=== PATIENT | female | born 1935 | race African-American/Black ===

== ENCOUNTER 2017-05-29 08:33 | Outpatient (CLI) | payer MEDICARE, MEDICAID | END 2017-05-29 08:34 | disposition home or self-care (01) | LOC: BICMAMMO 08:33 | PROVIDERS: ATTEND Emergency Medicine | DX: Z12.31 Encounter for screening mammogram for malignant neoplasm of breast (principal) | CPT/HCPCS: 77063; 77067 ==

== ENCOUNTER 2017-06-19 08:26 | Outpatient (CLI) | payer MEDICARE, MEDICAID ==
[2017-06-19] MEDS ORDERED: ISOVUE-370 76%-LOCM 1 ML ONE (14:45)
== END 2017-06-19 08:27 | disposition home or self-care (01) ==
LOC: BICCT 08:26
PROVIDERS: ATTEND Family Medicine
DX: R19.02 Left upper quadrant abdominal swelling, mass and lump (principal); N28.1 Cyst of kidney, acquired; K57.30 Diverticulosis of large intestine without perforation or abscess without bleeding
CPT/HCPCS: 74170

== ENCOUNTER 2018-05-30 08:01 | Outpatient (CLI) | payer MEDICARE, MEDICAID ==
--- NOTE | 2018-06-04 13:22 | MMO ---
Bilateral MAMMO Bilat Screen [facility]. CLINICAL HISTORY: Patient is 82 years old and is seen for screening. The patient has no family history of breast cancer. The patient has no personal history of cancer. VIEWS: The views performed were: bilateral craniocaudal with tomosynthesis; bilateral mediolateral oblique; and bilateral mediolateral oblique with tomosynthesis. FILMS COMPARED: The present examination has been compared to prior imaging studies performed at [facility] [place] on 05/11/2010, 05/18/2011, 05/16/2012, 05/17/2013, 05/20/2014, 05/26/2015, 05/27/2016 and 05/29/2017, and at [facility] [place] on 04/12/2005, 04/14/2006, 04/16/2007 and 05/07/2008. MAMMOGRAM FINDINGS: There are scattered fibroglandular densities. There are vascular calcifications seen in both breasts. There are no suspicious masses, calcifications or areas of architectural distortion. IMPRESSION: THERE IS NO MAMMOGRAPHIC EVIDENCE OF MALIGNANCY. A ROUTINE FOLLOW-UP MAMMOGRAM IN 1 YEAR IS RECOMMENDED. THE RESULTS OF THIS EXAM WERE SENT TO THE PATIENT. ACR BI-RADS Category 2 - Benign finding MAMMOGRAPHY NOTE: 1. A negative mammogram report should not delay a biopsy if a dominant of clinically suspicious mass is present. 2. Approximately 10% to 15% of breast cancers are not detected by mammography. 3. Adenosis and dense breasts may obscure an underlying neoplasm.
== END 2018-05-30 08:02 | disposition home or self-care (01) ==
LOC: BICMAMMO 08:01
PROVIDERS: ATTEND Emergency Medicine
DX: Z12.31 Encounter for screening mammogram for malignant neoplasm of breast (principal)
CPT/HCPCS: 77063; 77067

== ENCOUNTER 2018-10-19 15:42 | Outpatient (CLI) | payer MEDICARE, MEDICAID ==
--- NOTE | 2018-10-19 16:10 | ULT ---
EXAM: Bilateral lower extremity venous Doppler US HISTORY: bilateral lower extremity edema and pain FINDINGS: Grayscale, color-flow, Doppler evaluation, spectral analysis of the bilateral lower extremities venou s structures is performed with 2-D imaging. The bilateral common femoral, superficial femoral, popliteal, posterior tibial, proximal greater saphenous and profunda femoral veins are imaged. There is normal luminal compressibility, flow, and augmentation in the visualized deep venous structu res of the bilateral lower extremities. IMPRESSION: No evidence of a deep vein thrombosis in either lower extremity.
== END 2018-10-19 15:43 | disposition home or self-care (01) ==
LOC: ULT 15:42
PROVIDERS: ATTEND Emergency Medicine
DX: R22.43 Localized swelling, mass and lump, lower limb, bilateral (principal)
CPT/HCPCS: 93970

== ENCOUNTER 2019-08-07 07:41 | Outpatient (CLI) | payer MEDICARE, MEDICAID ==
--- NOTE | 2019-08-07 08:40 | MMO ---
Bilateral MAMMO Bilat Screen [facility]. CLINICAL HISTORY: Patient is 83 years old and is seen for screening. The patient has no family history of breast cancer. The patient has no personal history of cancer. VIEWS: The views performed were: bilateral craniocaudal with tomosynthesis and bilateral mediolateral oblique with tomosynthesis. FILMS COMPARED: The present examination has been compared to prior imaging studies performed at [facility] on 05/27/2016, 05/29/2017 and 05/30/2018. This study has been interpreted with the assistance of computer-aided detection. MAMMOGRAM FINDINGS: There are scattered fibroglandular densities. Benign calcifications are noted bilaterally. There are no suspicious masses, suspicious calcifications, or new areas of architectural distortion. IMPRESSION: THERE IS NO MAMMOGRAPHIC EVIDENCE OF MALIGNANCY. A ROUTINE FOLLOW-UP MAMMOGRAM IN 1 YEAR IS RECOMMENDED. THE RESULTS OF THIS EXAM WERE SENT TO THE PATIENT. ACR BI-RADS Category 2 - Benign finding MAMMOGRAPHY NOTE: 1. A negative mammogram report should not delay a biopsy if a dominant of clinically suspicious mass is present. 2. Approximately 10% to 15% of breast cancers are not detected by mammography. 3. Adenosis and dense breasts may obscure an underlying neoplasm. Reported by: JOAQUIN GONZALEZ MD Electonically Signed: [id number]
== END 2019-08-07 07:42 | disposition home or self-care (01) ==
LOC: BICMAMMO 07:41
PROVIDERS: ATTEND Emergency Medicine
DX: Z12.31 Encounter for screening mammogram for malignant neoplasm of breast (principal)
CPT/HCPCS: 77063; 77067

== ENCOUNTER 2019-08-14 21:55 | Emergency (ER) | payer MEDICARE, MEDICAID ==
--- NOTE | 2019-08-15 07:27 | RAD ---
CHEST 1 VIEW: Date: 08/14/2019 HISTORY: Fall. COMPARISON: Radiograph from 2018. FINDINGS: Heart size mildly enlarged. Right distal clavicular osteolysis. No confluent air space consolidation, pneumothorax, or effusion. No acute displaced rib fracture. IMPRESSION: No acute intrathoracic abnormality. POS: HOME
--- NOTE | 2019-08-15 07:28 | RAD ---
RIGHT KNEE 4 VIEWS: Date: 08/14/2019 COMPARISON: None. FINDINGS: No significant joint effusion. No acute displaced fracture or malalignment. Moderate to severe medial compartment degenerative change. Moderate patellofemoral and lateral compartment degenerative change s. Circumferential soft tissue swelling. IMPRESSION: No acute fracture or malalignment. POS: HOME
--- NOTE | 2019-08-15 07:29 | RAD ---
LEFT KNEE 4 VIEWS: Date: 08/14/2019 HISTORY: Fall. COMPARISON: None. FINDINGS: There is moderate to severe medial compartment joint space narrowing. Moderate patellofemoral and lat eral compartment joint space narrowing. No significant joint effusion. Circumferential soft tissue sw elling. IMPRESSION: No acute osseous abnormality. POS: HOME
--- NOTE | 2019-08-15 07:30 | CT ---
CT BRAIN WITHOUT CONTRAST: Date: 08/14/2019 HISTORY: Fall. COMPARISON: None. 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 No acute hemorrhage. No m idline shift. No mass effect. 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 Calvarium is intact. Paranasal sinuses and mastoids are relatively clear. IMPRESSION: No acute post-traumatic intracranial sequelae. POS: HOME
== END 2019-08-14 23:32 | disposition home or self-care (01) ==
LOC: ERS 21:55
DX: S80.02XA Contusion of left knee, initial encounter (principal); S80.01XA Contusion of right knee, initial encounter; S20.212A Contusion of left front wall of thorax, initial encounter; S00.03XA Contusion of scalp, initial encounter; E11.9 Type 2 diabetes mellitus without complications; I10 Essential (primary) hypertension; J45.909 Unspecified asthma, uncomplicated; Z79.84 Long term (current) use of oral hypoglycemic drugs; Z79.899 Other long term (current) drug therapy; Z79.891 Long term (current) use of opiate analgesic; W18.09XA Striking against other object with subsequent fall, initial encounter
CPT/HCPCS: 70450; 71045

== ENCOUNTER 2020-03-16 18:42 | Inpatient (IN) | payer MEDICARE, MEDICAID ==
[~2020-03-16 18:42] MED LIST: Iopamidol-370 76% 500 ML 1 ML ONE
[2020-03-16] MEDS ORDERED: Acetaminophen 500 MG TAB ONE (19:08)
[2020-03-16 19:35] LABS: #Lymphocytes 0.7 thou/uL (1.20-3.40); #Monocytes 0.4 thou/uL (0.11-0.59); #Neutrophils 4.8 thou/uL (1.40-6.50); %Basophils 0.2 % (0.0-1.0); %Eosinophils 0.1 % (0.0-10.0); %Neutrophils 80.7 % (42.0-75.0); Hemoglobin 13.5 g/dL (12.0-16.0); Mean Corpuscular HGB CONC 33.1 g/dL (32.0-36.0); Mean Corpuscular Hemoglobin 29.5 pg (27.0-31.0); Mean Corpuscular Volume 89.1 fL (78.0-98.0); Platelet Count 113 thou/uL (130-400); RBC Distribution Width 12.1 % (11.5-14.5); Red Blood Cell (RBC) Count 4.59 mill/uL (4.20-5.40)
[2020-03-16 19:39] LABS: INR-International Normal Ratio 1.1; Prothrombin Time 14.3 sec (12.0-14.7)
[2020-03-16 19:40] LABS: PTT 36.6 sec (22.9-36.1)
[2020-03-16 19:41] LABS: D-Dimer Test 1.44 *mcg/mL (0.27-0.43)
[2020-03-16 20:02] LABS: ALT (SGPT) 29 U/L (8-55); AST (SGOT) 55 U/L (5-34); Albumin 3.4 g/dL (3.4-4.8); Alkaline Phosphatase 39 U/L (40-110); Anion Gap 16 mmol/L (10-20); BUN (Urea Nitrogen) 15 mg/dL (9.8-20.1); Bilirubin, Total 0.4 mg/dL (0.2-1.2); Calc. Creatinine Clearance 0 mL/min (70-130); Calcium 7.7 mg/dL (7.8-10.44); Carbon Dioxide 21 mmol/L (23-31); Chloride 108 mmol/L (98-107); Globulin 3.3 g/dL (2.4-3.5); Glucose 182 mg/dL (83-110); Protein, Total 6.7 g/dL (6.0-8.3); Sodium 142 mmol/L (136-145)
[2020-03-16 20:04] LABS: Bacteria/HPF None Seen HPF (None Seen); Bilirubin Negative (Negative); Blood, Urine 3+ (Negative); Clarity Turbid (Clear); Glucose, Urine (Dipstick) 70 mg/dL (Negative); Ketone, Urine Trace mg/dL (Negative); Leukocyte Negative Leu/uL (Negative); Nitrite Negative (Negative); Protein, Urine (Dipstick) 200 mg/dL (Neg-Trace); RBC/HPF 0-3 HPF (0-3); Specific Gravity, Urine 1.026 (1.002-1.036); Urobilinogen Normal mg/dL (Less than 2)
[2020-03-16 20:16] LABS: CKMB 3.2 ng/mL (0-6.6)
--- NOTE | 2020-03-16 20:42 | PDOC.FPRHP ---
- History of Present Illness Chief Complaint: fever History of Present Illness: Patient is 84 yo F who was dx with Covid on 03/12. She has had fever today and increased SOB. She also complains of chest pain. She is a somewhat poor historian. Also has been feeling weak. ED Course: In ED, patient had sepsis workup in setting of known Covid positive. CTA neg for PE, reactive lymphadenopathy, and groundglass opacities. Received potassium, 1mg/kg lovenox, aspirin, 1L NS, and tylenol 1g. - Allergies/Adverse Reactions Allergies Allergy/AdvReac Type Severity Reaction Status Date / Time No Known Allergies Allergy Verified 06/02/19 06:40 - Home Medications Medication Instructions Recorded Confirmed Type Valsartan/Hydrochlorothiazide 09/11/12 09/11/12 History [Valsartan-Hctz 320-12.5 mg Tab] metFORMIN HCl [metFORMIN HCl ER] 500 mg PO QPM-WM 09/11/12 09/11/12 History Amoxicillin [Amoxil] 500 mg PO Q8HR #30 cap 10/04/12 Rx - History PMHx: Type 2 DM, HTN, asthma, HLD PSHx: bilateral rotator cuff surgeries, left wrist surgery, hysterectomy FHx: denies Social: - Lives at home with family - denies alcohol, smoking, drugs - Review of Systems General: reports: fever/chills. denies: weight/appetite/sleep changes Eyes: denies: vision changes ENT: denies: nasal congestion, rhinorrhea Respiratory: reports: cough, shortness of breath Cardiovascular: reports: chest pain. denies: palpitation Gastrointestinal: denies: nausea, vomiting, diarrhea Genitourinary: denies: dysuria Skin: denies: rashes Musculoskeletal: denies: pain, tenderness Neurological: reports: weakness. denies: syncope Psychological: denies: anxiety, depression - Vital signs BP: 203/74, MAP: 117, Pulse: 95, Resp: 32, Temp: 102.6 (Oral), Pain: 0, O2 sat: 98 on (Room Air), Wt: 132 kg Time: 03/16/2020 18:50. - Physical Exam Constitutional: NAD, awake, alert and oriented, well developed HEENT: normocephalic and atraumatic, PERRLA, EOMI, conjunctiva clear, no scleral icterus, grossly normal vision, grossly normal hearing Neck: trachea midline Chest: no-tender to palpation Heart: RRR, normal S1/S2, no murmurs/rubs/gallops Lungs: CTAB, no respiratory distress, good air movement Abdomen: soft, non-tender, bowel sounds present Musculoskeletal: normal structure, normal tone Neurological: no focal deficit Skin: no rash/lesions, good turgor Heme/Lymphatic: no unusual bruising or bleeding Psychiatric: normal mood and affect, intact recent and remote memory FMR H&P: Results - Labs Result Diagrams: 03/17/20 04:43 03/17/20 04:43 Lab results: WBC 6.0 thou/uL (4.8-10.8) 03/16/20 19:18 Hgb 13.5 g/dL (12.0-16.0) 03/16/20 19:18 Hct 40.9 % (36.0-47.0) 03/16/20 19:18 MCV 89.1 fL (78.0-98.0) 03/16/20 19:18 Plt Count 113 thou/uL (130-400) L 03/16/20 19:18 Neutrophils % 80.7 % (42.0-75.0) H 03/16/20 19:18 ESR Westergren 47 mm/hr (Less than 30) H 03/16/20 19:18 Sodium 142 mmol/L (136-145) 03/16/20 19:18 Potassium 3.0 mmol/L (3.5-5.1) L 03/16/20 19:18 Chloride 108 mmol/L (98-107) H 03/16/20 19:18 Carbon Dioxide 21 mmol/L (23-31) L 03/16/20 19:18 BUN 15 mg/dL (9.8-20.1) 03/16/20 19:18 Creatinine 0.83 mg/dL (0.6-1.1) 03/16/20 19:18 Glucose 182 mg/dL (83-110) H 03/16/20 19:18 Lactic Acid 1.3 mmol/L (0.5-2.2) 03/16/20 19:18 Calcium 7.7 mg/dL (7.8-10.44) L 03/16/20 19:18 Total Bilirubin 0.4 mg/dL (0.2-1.2) 03/16/20 19:18 AST 55 U/L (5-34) H 03/16/20 19:18 ALT 29 U/L (8-55) 03/16/20 19:18 Alkaline Phosphatase 39 U/L (40-110) L 03/16/20 19:18 CK-MB (CK-2) 3.2 ng/mL (0-6.6) 03/16/20 19:18 C-Reactive Protein 7.44 mg/dL (= or < 0.5) H 03/16/20 19:18 B-Natriuretic Peptide 93.1 pg/mL (0-100) 03/16/20 19:18 Serum Total Protein 6.7 g/dL (6.0-8.3) 03/16/20 19:18 Albumin 3.4 g/dL (3.4-4.8) 03/16/20 19:18 Urine Ketones Trace mg/dL (Negative) A 03/16/20 19:28 Urine Blood 3+ (Negative) A 03/16/20 19:28 Urine Nitrite Negative (Negative) 03/16/20 19:28 Ur Leukocyte Esterase Negative Reji/uL (Negative) 03/16/20 19:28 Urine RBC 0-3 HPF (0-3) 03/16/20 19:28 Urine WBC 4-6 HPF (0-3) A 03/16/20 19:28 Ur Squamous Epith Cells 4-6 HPF (0-3) A 03/16/20 19:28 Urine Bacteria None Seen HPF (None Seen) 03/16/20 19:28 - EKG Interpretation EKG: NSR, nonspecific T wave flattening - Radiology Interpretation Chest x-ray Status: image reviewed by me, report reviewed by me CT scan - chest Status: image reviewed by me, report reviewed by me Additional comment: neg for PE FMR H&P: A/P - Plan 84 yo female admitted for: NSTEMI - elevated troponin, nonspecific EKG changes - anticoagulated with therapeutic lovenox based on ideal body weight. - platelets at 113, monitor closely - trend troponins Covid PNA - inflammatory markers elevated consistent with Covid PNA - on room air and saturating well - due to being on room air, hold steroids and do not trend inflammatory markers - covid precautions Possible UTI - asymptomatic - culture pending Hypokalemia Hypophosphatemia - replaced, monitor - magnesium normal - replace phosphate in AM depending on potassium in AM (potassium phosphate vs sodium phosphate) T2DM HTN Asthma HLD - continue home meds Code: FULL Diet: diabetic diet IVF: SL VTE: th LVX GI ppx: none Discussed plan with Dr. Resendez. Disposition/LOS: admit to inpatient, telemetry. ELOS > 48H. Addendum - Attending - Attending Attestation Date/Time: 03/17/20 8720 I personally evaluated the patient and discussed the management with Dr. Jain on 03/16/2020 I agree with the History, Examination, Assessment and Plan documented above with any addition or exceptions noted below - 84 yo F with h/o DM, HTN, HLD and asthma who was dx with Covid on 03/12. She has had fever today and increased SOB. She also complains of chest pain. She is a somewhat poor historian. Also has been feeling weak. PMH/PSH/Meds/SH reviewed and agree with resident's documentation. VSS Exam repeated by me and agree with resident's findings. Labs: WBC=6.0, H/H=13.5/40.9, Nln=643, Gv=753, K=3.0, Vp=591, CO2=21, BUN/Cr=15/0.83, Ruqp=718, AST/ALT=55/29, BNP=93.1, CRP=7.44, D-dimer=1.44, tro I=0.173, CTA- no PE; multilobar ground glass opacities s/w COVID pneumonia. A/P: 1) NSTEMI - continue lovenox, ASA, statin, beta-apoorva. 2) COVID pneumonia- no O2 requirement; continue to monitor. 3) DM- continue home meds; monitor accuchecks.
--- NOTE | 2020-03-16 21:17 | CT ---
Exam: CT angiogram of the chest HISTORY: Dyspnea. Elevated d-dimer. COVID positive patient. Generalized weakness. COMPARISON: None TECHNIQUE: CT angiogram of the chest is performed in the axial plane. Three-dimensional reformatted i mages are submitted for interpretation FINDINGS: Mediastinum: No mediastinal mass, lymphadenopathy or hematoma. Enlarged right hilar lymph node measur es 1.8 and 1.3 cm. HEART: Normal size. No significant pericardial fluid. Aorta: No aneurysm or dissection Upper solid abdominal viscera: No abnormality enhancement. Trachea and central bronchi: Patent Pleural spaces: No effusion Lung parenchyma: Peripheral groundglass opacities, in keeping with the patient's positive COVID statu s post. Pneumothorax: None Osseous structures: No lytic or blastic lesions Pulmonary arteries: Adequate contrast opacification pulmonary arterial system to the level of segment al arteries. No filling defect to suggest pulmonary embolism IMPRESSION: 1. No evidence of pulmonary arterial embolism to the level of the segmental arteries 2. Multi lobar groundglass opacities, due to multi lobar COVID pneumonia. 3. Lymphadenopathy, presumed be reactive.
[2020-03-16] MEDS ORDERED: Aspirin 325 MG TAB ONE (21:51)
[2020-03-16] MEDS ORDERED: Potassium Chloride 20 MEQ TAB ONE (21:51)
[2020-03-16] MEDS ORDERED: Enoxaparin Sodium 30 MG/0.3 ML SYRINGE ONE (21:51)
[2020-03-16] MEDS ORDERED: Enoxaparin Sodium 100 MG/ML SYRINGE ONE (21:51)
[2020-03-16 22:00] LABS: Troponin I 0.215 ng/mL (< 0.028)
[2020-03-16] MEDS ORDERED: Nitroglycerin 0.4 MG TAB (25 Tab Bottle) SL PRN (22:18)
[2020-03-16] MEDS ORDERED: Ondansetron ODT 4 MG TAB PO PRN (22:29)
[2020-03-16] MEDS ORDERED: Calcium Carbonate 500 MG ChewTAB PO PRN (22:29)
[2020-03-16] MEDS ORDERED: Acetaminophen 650 MG Suppository PR PRN (22:29)
[2020-03-16] MEDS ORDERED: Acetaminophen 325 MG TAB PO PRN (22:29)
[2020-03-16 22:43] LABS: Hemoglobin A1c 6.1 % (4.0-6.0)
[2020-03-16] MEDS ORDERED: Albuterol Sulfate 2.5 mg/3 ml Neb NEB PRN (23:41)
[2020-03-16] MEDS ORDERED: Loratadine 10 MG TAB PO PRN (23:41)
[2020-03-17 01:23] LABS: Troponin I 0.219 ng/mL (< 0.028)
[2020-03-17] MEDS ORDERED: Carvedilol 25 MG TAB PO SCH ×2 (01:45→08:00)
[2020-03-17 02:21] VITALS: BMI 46.0
[2020-03-17] MEDS ORDERED: Sodium Phosphate 15 MMOL in Sodium Chloride 0.9% 250 ML 250 ML IVPB SCH (02:45)
[2020-03-17 05:05] LABS: #Lymphocytes 1.6 thou/uL (1.20-3.40); #Monocytes 0.5 thou/uL (0.11-0.59); #Neutrophils 3.9 thou/uL (1.40-6.50); %Basophils 0.2 % (0.0-1.0); %Lymphocytes 26.3 % (21.0-51.0); %Monocytes 8.5 % (0.0-10.0); %Neutrophils 64.9 % (42.0-75.0); Hemoglobin 12.2 g/dL (12.0-16.0); Mean Corpuscular HGB CONC 32.3 g/dL (32.0-36.0); Mean Corpuscular Hemoglobin 28.8 pg (27.0-31.0); Mean Corpuscular Volume 89.2 fL (78.0-98.0); Mean Platelet Volume 7.9 fL (7.4-10.4); Platelet Count 116 thou/uL (130-400); RBC Distribution Width 12.1 % (11.5-14.5); Red Blood Cell (RBC) Count 4.24 mill/uL (4.20-5.40)
[2020-03-17 05:22] LABS: ALT (SGPT) 33 U/L (8-55); AST (SGOT) 61 U/L (5-34); Alkaline Phosphatase 34 U/L (40-110); Anion Gap 13 mmol/L (10-20); BUN (Urea Nitrogen) 13 mg/dL (9.8-20.1); Bilirubin, Total 0.4 mg/dL (0.2-1.2); Calc. Creatinine Clearance 121 mL/min (70-130); Calcium 7.5 mg/dL (7.8-10.44); Carbon Dioxide 24 mmol/L (23-31); Cardiac Risk 3.1 (Less than 4.5); Chloride 109 mmol/L (98-107); Cholesterol 94 mg/dl (< 200 Desired); Globulin 3.2 g/dL (2.4-3.5); Glucose 114 mg/dL (83-110); HDL Cholesterol 30 mg/dL (>60 Neg Risk); LDL Cholesterol, Calculated 49 mg/dL; Magnesium 1.8 mg/dL (1.6-2.6); Protein, Total 6.2 g/dL (6.0-8.3); Sodium 143 mmol/L (136-145); Triglycerides 75 mg/dL (Less than 150)
[2020-03-17 05:23] LABS: Troponin I 0.221 ng/mL (< 0.028)
[2020-03-17] MEDS ORDERED: Potassium Chloride 20 MEQ TAB PO SCH (06:00)
--- NOTE | 2020-03-17 06:01 | PDOC.FM ---
- Subjective Subjective: Patient reports that she is doing well overall. She denies chest pain. She endorses back pain relieved by rolling onto side. Denies SOB. - Objective MAR Reviewed: Yes Vital Signs & Weight: Weight Weight 133.3 kg Result Diagrams: 03/17/20 04:43 03/17/20 04:43 Phys Exam - Physical Examination Constitutional: NAD Respiratory: no wheezing, no rales, no rhonchi Cardiovascular: RRR, no significant murmur, no rub Gastrointestinal: soft, non-tender, no distention, positive bowel sounds Dx/Plan - Plan Plan: 84 yo female admitted for: Indeterminate trops - elevated troponin, nonspecific EKG changes - DO NOT believe patient meets criteria for NSTEMI. Troponins remained indeterminate and patient is asymptomatic and never had chest pain. - Change lovenox to DVT ppx - platelets at 113, monitor closely - trend troponins- stable near 0.22 - check troponin today @ 1500 Covid PNA - inflammatory markers elevated consistent with Covid PNA - on NC, continue to monitor O2 requirements - If O2 is needed, may trend markers/consider starting steroids/COVID tx - covid precautions Possible UTI - asymptomatic - culture pending - Will not treat asx bacteriuria Hypokalemia Hypophosphatemia - replaced, monitor - magnesium normal - replace phosphate in AM depending on potassium in AM (potassium phosphate vs sodium phosphate) T2DM HTN Asthma HLD - continue home meds Code: FULL Diet: diabetic diet IVF: SL VTE: LVX GI ppx: none Disposition/LOS: Inpatient tele Addendum - Attending - Attending Attestation Date/Time: 03/17/20 1307 I personally evaluated the patient and discussed the management with Dr. Oquendo I agree with the History, Examination, Assessment and Plan documented above with any addition or exceptions noted below. 84 yo female placed in obs for cardiac evaluation. Patient noted to have indeterminate trops but was treated as NSTEMI. However, per patient report asymptomatic other than dyspnea from COVID. Nonspecific EKG changes. Trop is up trending but remains below threshold. Will repeat at 1500. If negative will d/c to home with precautions and outpatient cards follow up. Noted to have COVID PNA. Not requiring O2. Does have underlying asthma. Will add steroids and continue home breathing treatments as needed. Set up for outpatient monoclonal antibody treatment. Continue to monitor throughout the day. Dispo pending cardiac results. ABrayMD
[2020-03-17] MEDS ORDERED: metFORMIN 500 MG TAB PO SCH (08:00)
[2020-03-17] MEDS ORDERED: Oxybutynin 5 MG TAB PO SCH (09:00)
[2020-03-17] MEDS ORDERED: Enoxaparin Sodium 30 MG/0.3 ML SYRINGE SC SCH (09:00)
[2020-03-17] MEDS ORDERED: Cyanocobalamin (Vitamin B-12) 1,000 MCG TAB PO SCH (09:00)
[2020-03-17] MEDS ORDERED: Enoxaparin Sodium 40 MG/0.4 ML SYRINGE SC SCH ×2 (09:00)
[2020-03-17] MEDS ORDERED: Hydrochlorothiazide 25 MG TAB PO SCH (09:00)
[2020-03-17] MEDS ORDERED: Lisinopril 20 MG TAB PO SCH (09:00)
[2020-03-17] MEDS ORDERED: Amlodipine 10 MG TAB PO SCH (09:00)
[2020-03-17] MEDS ORDERED: Gabapentin 100 MG CAP PO SCH (09:00)
[2020-03-17] MEDS ORDERED: Fluticasone Propionate Nasal Spray 16 gm Bottle NASAL SCH (09:00)
[2020-03-17] MEDS ORDERED: Aspirin 81 mg Enteric Coated Tablet PO SCH (09:00)
[2020-03-17] MEDS ORDERED: Enoxaparin Sodium 100 MG/ML SYRINGE SC SCH (09:00)
[2020-03-17] MEDS ORDERED: Potassium Chloride 20 MEQ TAB ONE (09:19)
[2020-03-17] MEDS ORDERED: PHOS-NAK 1 PKT PACK PO SCH (09:30)
[2020-03-17] MEDS ORDERED: Aspirin Chewable 81 MG TAB ONE (09:41)
[2020-03-17] MEDS ORDERED: Enoxaparin Sodium 30 MG/0.3 ML SYRINGE ONE (09:42)
[2020-03-17] MEDS ORDERED: Enoxaparin Sodium 100 MG/ML SYRINGE ONE (09:42)
[2020-03-17] MEDS ORDERED: Enoxaparin Sodium 40 MG/0.4 ML SYRINGE ONE (09:43)
[2020-03-17 09:45] LABS: Phosphorus 2.5 mg/dL (2.3-4.7)
[2020-03-17] MEDS ORDERED: Acetaminophen 500 MG TAB ONE (12:55)
[2020-03-17] MEDS ORDERED: Acetaminophen 500 MG TAB PO SCH (15:45)
[2020-03-17 16:00] LABS: Troponin I 0.218 ng/mL (< 0.028)
--- NOTE | 2020-03-17 20:52 | DIS ---
DATE OF ADMISSION: 03/16/2020 DATE OF DISCHARGE: 03/17/2020 ADMITTING ATTENDING: Dr. Resendez. DISCHARGE ATTENDING: Dr. Sebastian. PROCEDURES: Chest CT angiogram showing no evidence of pulmonary embolism. PRIMARY DIAGNOSIS: Coronavirus pneumonia. SECONDARY DIAGNOSIS: Indeterminate troponin, hypokalemia, hypophosphatemia, type 2 diabetes, hypertension, asthma, hyperlipidemia. DISCHARGE MEDICATIONS: 1. Carvedilol 25 mg p.o. b.i.d. 2. Lisinopril 40 mg p.o. daily. 3. Albuterol 2 puffs q.6 hours p.r.n. 4. 1000 mcg of B12 p.o. daily. 5. Flonase 2 squirts each nostril daily. 6. Albuterol nebulizer q.4 hours p.r.n. 7. Kaleigh 60 mg p.o. daily. 8. Metformin 500 mg p.o. b.i.d. 9. Hydrochlorothiazide 50 mg p.o. daily. 10. Nasacort 1 spray daily each nostril. 11. Simvastatin 40 mg p.o. daily. 12. Oxybutynin 5 mg p.o. daily. 13. Amlodipine 10 mg p.o. daily. 14. Gabapentin 100 mg p.o. daily. 15. Nystatin powder apply topically b.i.d. 16. Discontinued medications: None. HISTORY OF PRESENT ILLNESS/HOSPITAL COURSE: The patient is an 84-year-old female with past medical history of diabetes and hypertension, who presented to the ED due to general malaise and fevers. On admission, the patient had temperature of 102.6. The patient tested positive on 03/12 for COVID. During her evaluation, labs were found to show troponin significant at 0.173, which trended up to 0.221. The patient was admitted due to this indeterminate troponin. The patient was admitted initially admitted under diagnosis of NSTEMI, however, troponin never increased out of indeterminate range. The patient denied chest pain during the hospital stay. While in the hospital the patient reported skin breakdown under one of the folds on her pannus. Nystatin powder was ordered. Given stable indeterminate tropes with no active chest pain and no other evidence on electrocardiogram, the patient was discharged in stable condition. The patient required 2 L of nasal cannula oxygen for a minimal amount of time but was otherwise stable on room air and O2 saturations were near 100%. DISPOSITION: Stable. DISCHARGE INSTRUCTIONS: 1. Location: Home. 2. Diet: Consistent carb, heart healthy. 3. Activity: As tolerated, discussed self quarantine of 10 days from start of sx. 4. Followup: Please follow up with your primary care physician within 2 weeks for followup of symptoms as well as the skin rash. Clinic will call the patient to try to set up monoclonal antibody infusions on day after discharge. Job ID: [id number] [facility]
[2020-03-17] MEDS ORDERED: Atorvastatin Calcium 40 MG TAB PO SCH (21:00)
[2020-03-17] MEDS ORDERED: Simvastatin 40 MG TAB PO SCH (21:00)
[2020-03-18] MEDS ORDERED: Enoxaparin Sodium 40 MG/0.4 ML SYRINGE SC SCH (09:00)
== END 2020-03-17 18:18 | disposition home or self-care (01) | DRG 177 ==
LOC: ERS 18:42 → OBSVTOIN 21:10 → ERHOLD 21:10
PROVIDERS: ADMIT Family Medicine; ATTEND Family Medicine
PROC: 8E0ZXY6 Isolation (ICD-10-PCS; principal; 2020-03-16)
DX: U07.1 COVID-19 (principal); J12.82 Pneumonia due to coronavirus disease 2019; E87.6 Hypokalemia; E83.39 Other disorders of phosphorus metabolism; E11.9 Type 2 diabetes mellitus without complications; I10 Essential (primary) hypertension; J45.909 Unspecified asthma, uncomplicated; R79.89 Other specified abnormal findings of blood chemistry; E78.5 Hyperlipidemia, unspecified; Z79.899 Other long term (current) drug therapy; Z90.710 Acquired absence of both cervix and uterus; R77.8 Other specified abnormalities of plasma proteins; Z79.84 Long term (current) use of oral hypoglycemic drugs
CPT/HCPCS: 36415; 71045; 71275; 80053; 80061; 81003; 81015; 82553; 83036; 83605; 83735; 83880; 84100; 84145; 84443; 84484; 85025; 85379; 85610; 85652; 85730; 86140; 87040; 87086; 93005; 94760; 96372; J1650; Q9967

== ENCOUNTER 2020-03-18 01:32 | Inpatient (IN) | payer MEDICARE, MEDICAID ==
[2020-03-18] MEDS ORDERED: Dexamethasone 10 MG/ML VIAL ONE (02:17)
[2020-03-18 02:30] LABS: #Lymphocytes 0.6 thou/uL (1.20-3.40); #Monocytes 0.4 thou/uL (0.11-0.59); #Neutrophils 7.6 thou/uL (1.40-6.50); %Basophils 0.1 % (0.0-1.0); %Eosinophils 0.1 % (0.0-10.0); %Lymphocytes 7.4 % (21.0-51.0); %Monocytes 4.5 % (0.0-10.0); %Neutrophils 87.9 % (42.0-75.0); Hemoglobin 13.1 g/dL (12.0-16.0); Mean Corpuscular HGB CONC 34.6 g/dL (32.0-36.0); Mean Corpuscular Hemoglobin 30.7 pg (27.0-31.0); Mean Corpuscular Volume 88.9 fL (78.0-98.0); Platelet Count 129 thou/uL (130-400); RBC Distribution Width 12.1 % (11.5-14.5); Red Blood Cell (RBC) Count 4.27 mill/uL (4.20-5.40); White Blood Cell (WBC) Count 8.7 thou/uL (4.8-10.8)
[2020-03-18] MEDS ORDERED: Cefepime 2 GM VIAL ONE (02:36)
[2020-03-18 02:45] LABS: INR-International Normal Ratio 1.1; Prothrombin Time 13.9 sec (12.0-14.7)
[2020-03-18 02:46] LABS: PTT 41.4 sec (22.9-36.1)
[2020-03-18 03:12] LABS: ALT (SGPT) 52 U/L (8-55); AST (SGOT) 108 U/L (5-34); Alkaline Phosphatase 35 U/L (40-110); Anion Gap 19 mmol/L (10-20); BUN (Urea Nitrogen) 13 mg/dL (9.8-20.1); Bilirubin, Total 0.6 mg/dL (0.2-1.2); Calc. Creatinine Clearance 0 mL/min (70-130); Calcium 7.3 mg/dL (7.8-10.44); Carbon Dioxide 19 mmol/L (23-31); Chloride 105 mmol/L (98-107); Globulin 3.4 g/dL (2.4-3.5); Glucose 172 mg/dL (83-110); Potassium 3.5 mmol/L (3.5-5.1); Protein, Total 6.4 g/dL (6.0-8.3); Sodium 139 mmol/L (136-145)
--- NOTE | 2020-03-18 03:17 | PDOC.FPRHP ---
- History of Present Illness Chief Complaint: SOB History of Present Illness: Pt is an 84yo female who was diagnosed with Covid on 03/12. She was admitted on 03/16/19 and discharged on 03/17/19. She went home and said "I just couldn't get comfortable". She called EMS and when they arrived they found her O2 sat to be 75% on RA. She is a somewhat poor historian. States she has not been eating or drinking her normal amount, has felt weak and had fever/chills. Denies CP, N/V/D. ED Course: levaquin, cefepime, vanc, decadron - Allergies/Adverse Reactions Allergies Allergy/AdvReac Type Severity Reaction Status Date / Time No Known Allergies Allergy Verified 03/18/20 05:08 - Home Medications Medication Instructions Recorded Confirmed Type metFORMIN HCl [metFORMIN HCl ER] 500 mg PO QPM- 09/11/12 03/18/20 History Amlodipine [Norvasc] 10 mg PO DAILY tab 03/17/20 03/18/20 Rx Carvedilol [Coreg] 25 mg PO BID- tab 03/17/20 03/18/20 Rx Cyanocobalamin (Vitamin B-12) 1,000 mcg PO DAILY tab 03/17/20 03/18/20 Rx [Vitamin B-12] Fluticasone Propionate [Flonase 1 gm NASAL DAILY bot 03/17/20 03/18/20 Rx Nasal Frost] Gabapentin [Neurontin] 100 mg PO DAILY cap 03/17/20 03/18/20 Rx Nystatin [Nystatin Powder] 1 applic TOP BID #1 bot 03/17/20 03/18/20 Rx Oxybutynin [Ditropan] 5 mg PO DAILY tab 03/17/20 03/18/20 Rx Albuterol Sulfate [Proventil Hfa] 2 puff INH Q6H PRN 03/18/20 03/18/20 History Fexofenadine HCl [[place] Allergy] 60 mg PO 03/18/20 History Hydrochlorothiazide 25 mg PO DAILY 03/18/20 03/18/20 History Simvastatin 40 mg PO HS 03/18/20 03/18/20 History - History PMHx: DMII, HTN, overactive bladder, asthma, HLD PSHx: bilateral rotator cuff surgeries, left wrist surgery, hysterectomy FHx: denies Social: Lives at home with her daughter. No TAD. - Review of Systems General: reports: fever/chills, fatigue Eyes: denies: eye pain, vision changes ENT: denies: nasal congestion, rhinorrhea Respiratory: reports: cough, shortness of breath Cardiovascular: denies: chest pain Gastrointestinal: denies: nausea, vomiting, diarrhea, abdominal pain Skin: denies: rashes Musculoskeletal: reports: tenderness. denies: arthritis/arthralgias Neurological: denies: syncope Psychological: denies: anxiety, depression - Vital signs BP: 189/76 HR: 77 RR: Tmax: 101.8F Pox: 92% on 4L NC Wt: 132 kg - Physical Exam Constitutional: awake, alert and oriented, other (mild distress when speaking, on 4L NC) HEENT: normocephalic and atraumatic, grossly normal vision, grossly normal hearing -HEENT: dry MM Neck: supple Chest: no-tender to palpation Heart: RRR, no murmurs/rubs/gallops, no edema -Lungs: wheezing bilaterally Abdomen: soft, non-tender Musculoskeletal: normal structure, normal tone, ROM grossly normal Neurological: no focal deficit Skin: no rash/lesions Heme/Lymphatic: no unusual bruising or bleeding Psychiatric: intact recent and remote memory FMR H&P: Results - Labs Result Diagrams: 03/18/20 02:00 03/18/20 02:00 Lab results: WBC 8.7 thou/uL (4.8-10.8) 03/18/20 02:00 Hgb 13.1 g/dL (12.0-16.0) 03/18/20 02:00 Hct 37.9 % (36.0-47.0) 03/18/20 02:00 MCV 88.9 fL (78.0-98.0) 03/18/20 02:00 Plt Count 129 thou/uL (130-400) L 03/18/20 02:00 Neutrophils % 87.9 % (42.0-75.0) H 03/18/20 02:00 Sodium 139 mmol/L (136-145) 03/18/20 02:00 Potassium 3.5 mmol/L (3.5-5.1) 03/18/20 02:00 Chloride 105 mmol/L (98-107) 03/18/20 02:00 Carbon Dioxide 19 mmol/L (23-31) L 03/18/20 02:00 BUN 13 mg/dL (9.8-20.1) 03/18/20 02:00 Creatinine 0.85 mg/dL (0.6-1.1) 03/18/20 02:00 Glucose 172 mg/dL (83-110) H 03/18/20 02:00 Lactic Acid 1.3 mmol/L (0.5-2.2) 03/18/20 02:00 Calcium 7.3 mg/dL (7.8-10.44) L 03/18/20 02:00 Total Bilirubin 0.6 mg/dL (0.2-1.2) 03/18/20 02:00 AST 108 U/L (5-34) H 03/18/20 02:00 ALT 52 U/L (8-55) 03/18/20 02:00 Alkaline Phosphatase 35 U/L (40-110) L 03/18/20 02:00 Serum Total Protein 6.4 g/dL (6.0-8.3) 03/18/20 02:00 Albumin 3.0 g/dL (3.4-4.8) L 03/18/20 02:00 FMR H&P: A/P - Plan 84yo female w/ PMH of DM2, asthma, HTN, and COVID+ on 03/12 presents with SOB #Sepsis and Acute Hypoxic Respiratory Failure 2/2 COVID PNA - COVID + on 03/12/20. Tmax 101.8, RR 26 - O2 sat at home 75%, in ED on 4L NC O2 sat 95% - pending CXR and COVID labs, did not repeat blood culture, had been done 2 days prior - s/p Vanc, Levaquin, Cefepime, steroids in ED; will not continue levaquin - mIVF due to dry MM and decreased po intake - oontinue to monitor resp status; currently on 4L NC, wean as tolerated #Asthma -continue home albuterol inhaler, not able to do home alb nebs due to COVID+ -added scheduled dulera #DM2 -continue home meds -accuchecks ACHS, mild SSI #HTN -BP elevated in ED, pt admits not taking home meds day of admission -continue home meds #HLD -continue home meds #Overactive Bladder -continue home meds Code Status: full PCP: LIZETH Chowdhury IVFs: LR @ 165mL/hr DVT PPx: lovenox Dispo: Will admit inpatient medical, continue to monitor resp status, LOS >48hrs FMR H&P: Upper Level - Pertinent history PCP: LIZETH Chowdhury HPI: 84YOF with a PMH notable for DMII, asthma, HTN, HLD & obesity who presented to the ED for evaluation for worsening SOB. Tested positive for COVID on 03/12/20 & was actually admitted on 03/16/20 for similar complaints but was discharged the following AM as she was feeling much better and maintaining adeq uate sats without any supplemental oxygen. Patient reports that since getting home she just couldnt get comfortable this evening so had her daughter call EMS to come bring her to the ER for evaluation. She was reportedly satting only 75% on RA per EMS so was placed on NC & brought to the ER for further evaluation. Patient denies any associated chest pain, N/V/D, or abdominal pain. Does endorse chills, productive cough, SOB & decreased appetite. ED course: 10mg decadron, IV Levaquin, cefepime & vancomycin See international recruiter note for pertinent portions of PMH - Pertinent findings Labs/Imaging: CXR: Diffuse multifocal infiltrates, R worse than left eGFR 77 REVIEW OF SYSTEMS: 12 point ROS negative except what was mentioned in HPI Vitals: BP: 189/76 HR: 77 RR: upper 20s Tmax: 101.8F Pox: 92% on 4L NC Wt: 132 kg PHYSICAL EXAMINATION: General: Laying back in bed in NAD HEENT: normocephalic atraumatic; dry mucus membranes noted Neck: Supple. Full ROM. Heart/Cardiovascular System: RRR, no murmurs noted Lungs/Respiratory System: diffuse end expiratory wheezing noted with decreased breath sounds throughout Abdomen/Gastro-Intestinal System: soft w/ no abdominal tenderness, normal bowel sounds Extremities: Warm w/ intact pulses bilaterally. No edema noted. Neuro: ip technology transactions attorney grossly intact; non-focal Skin: No rashes. - Plan Date/Time: 03/18/207 IYvette, have evaluated this patient and agree with findings/plan as outlined by international recruiter resident. Pertinent changes/additions are listed here. A/P: 84YOF with a PMH notable for DMII, asthma, HTN, HLD & obesity who presented to the ED for evaluation for worsening SOB 2/2 COVID-19 PNA. Acute hypoxic respiratory failure 2/2 Covid PNA - Tested + on 03/12/20. CXR & labs as well as reported sxs c/w this diagnosis as well. - Was reportedly hypoxic at 75% on RA at home per EMS. Stable on 4L NC currently. Will continue to wean O2 support as tolerated. - CXR showed worsening infiltrates compared to CT done on 03/16. Is s/p Levaquin, vanc & cefepime. Will continue vanc & cefepime only as well as steroids while inpatient & BS abx pending procalcitonin now & Bld Cxs from admission on 03/16. However, could consider re-culturing this admission in setting of worsening clinical status. -Will add CRYSTAL Dulera & PRN albuterol INH as well. -mIVFs in setting of decreased PO intake & dry mucus membranes on exam - Covid precautions. KALLIE -eGFR 77 on presentation with no documented CKD. Suspect prerenal from decreased PO intake & dry mucus membranes on exam. Will continue mIVFs this morning & encourage increased PO hydration. Will continue to monitor renal function. Asthma -Wheezing on exam, likely exacerbated by COVID. Will continue CRYSTAL dulera & PRN albuterol in setting of acute illness. T2DM -Will resume home meds and mild SSI. Hypoglycemia protocol. HTN HLD Overactive bladder - Will resume home meds PCP: LIZETH Chowdhury IVFs: LR @ 170mL/hr VTE PPX: Lovenox GI PPX: None Code status: FULL CODE Dispo: Will admit to medical floor for continued supportive therapy. Addendum - Attending - Attending Attestation Date/Time: 03/18/20 1152 I personally evaluated the patient and discussed the management with resident team I agree with the History, Examination, Assessment and Plan documented above with any addition or exceptions noted below. 84 yo female admitted for acute hypoxic respiratory failure due to COVID infection with underlying DM obesity, HTN, asthma, and HLD. No evidence of super-infection with bacterial. Will stop all antibx. Continue sup O2, breathing treatments, and steroids. Re-swabbed in order to start remdesvir. Remains stable at this time. Upbeat outlook. Monitor glucose readings. Shannon
[2020-03-18] MEDS ORDERED: Vancomycin 1 GM/200 ML BAG ONE (03:35)
[2020-03-18] MEDS ORDERED: Ondansetron ODT 4 MG TAB PO PRN (04:15)
[2020-03-18] MEDS ORDERED: Dextrose 50% Abboject 50 ML SYRINGE SLOW IVP PRN (04:15)
[2020-03-18] MEDS ORDERED: Ondansetron PF 4 MG/2 ML Vial IVP PRN (04:15)
[2020-03-18] MEDS ORDERED: Dextrose 5% in Water 1,000 ML IV PRN (04:15)
[2020-03-18] MEDS ORDERED: Non-Formulary Item 1 EACH (Albuterol Sulfate 200 PUFF Inh) INH PRN (04:41)
[2020-03-18] MEDS ORDERED: Lactated Ringer's 1,000 ML IV SCH (05:00)
[2020-03-18] MEDS ORDERED: PROVENTIL INHALER 6.7 G (200 INHALATIONS) INH PRN (05:01)
[2020-03-18 05:10] VITALS: BMI 43.8
[2020-03-18] MEDS ORDERED: Vancomycin 1 GM in Premix Bag 1 BAG IVPB SCH (05:30)
[2020-03-18] MEDS: HumaLOG 300 UNITS/3 ML VIAL SC PRN ×3 (06:04→21:13)
[2020-03-18] MEDS: Dexamethasone 4 MG TAB PO SCH (08:51)
[2020-03-18] MEDS: Gabapentin 100 MG CAP PO SCH (08:51)
[2020-03-18] MEDS: Loratadine 10 MG TAB PO SCH (08:52)
[2020-03-18] MEDS: Cyanocobalamin (Vitamin B-12) 1,000 MCG TAB PO SCH (08:52)
[2020-03-18] MEDS: Carvedilol 25 MG TAB PO SCH ×2 (08:52→16:47)
[2020-03-18] MEDS: Oxybutynin 5 MG TAB PO SCH (08:52)
[2020-03-18] MEDS: Amlodipine 10 MG TAB PO SCH (08:52)
[2020-03-18] MEDS: Mometasone 200 MCG/Formoterol 5 MCG 120 PUFF INHALER INH SCH ×2 (08:53→17:53)
[2020-03-18] MEDS: Enoxaparin Sodium 40 MG/0.4 ML SYRINGE SC SCH (08:53)
[2020-03-18] MEDS ORDERED: Hydrochlorothiazide 25 MG TAB PO SCH (09:00)
--- NOTE | 2020-03-18 09:12 | RAD ---
EXAM: XR Chest 1 View Portable PROVIDED CLINICAL HISTORY: Covid pneumonia, hypoxia COMPARISON: 08/14/2019 FINDINGS: The cardiac silhouette is within normal limits for portable technique. There is extensive right hemit horacic airspace disease as well as patchy left hemithoracic airspace disease. There is no pleural fluid or pneumothorax apparent. IMPRESSION: Bilateral airspace disease, right greater than left.
[2020-03-18] MEDS: Nystatin Powder 15 GM BOT TOP SCH ×2 (10:23→21:12)
[2020-03-18] MEDS: Fluticasone Propionate Nasal Spray 16 gm Bottle NASAL SCH (10:24)
[2020-03-18] MEDS ORDERED: EPINEPHrine 1 MG/10 ML Abboject SYRINGE ONE (13:14)
[2020-03-18] MEDS ORDERED: Calcium Chloride 1 GM/10 ML Abboject SYRINGE ONE (13:14)
[2020-03-18] MEDS ORDERED: Sodium Bicarb 50 MEQ/50 ML Abboject 8.4% SYRINGE ONE (13:14)
[2020-03-18] MEDS ORDERED: Vancomycin HCl 1.5 GM in Sodium Chloride 0.9% 250 ML 300 ML IVPB SCH (15:00)
[2020-03-18] MEDS ORDERED: Cefepime 2 GM in Sodium Chloride 0.9% 100 ML IVPB SCH (15:00)
[2020-03-18] MEDS ORDERED: Pharmacy to Dose REMDESIVIR IVPB PRN (15:38)
[2020-03-18] MEDS ORDERED: REMDESIVIR (EUA) 200 MG in Sodium Chloride 0.9% 250 ML 210 ML IV SCH (16:15)
[2020-03-18] MEDS: metFORMIN XR 500 MG TAB PO SCH (16:47)
[2020-03-18 17:00] LABS: SARS-CoV-2 MS2 Positive; SARS-CoV-2 N Gene Positive; SARS-CoV-2 S Gene Positive; SARS-CoV-2 by NAA DETECTED (NotDetected); SARS-CoV-2 orf1ab Positive
[2020-03-18] MEDS ORDERED: Mometasone 100 MCG/Formoterol 5 MCG 120 PUFF INHALER INH SCH (18:30)
[2020-03-18] MEDS ORDERED: Simvastatin 40 MG TAB PO SCH (21:00)
[2020-03-18] MEDS: Atorvastatin Calcium 20 MG TAB PO SCH (21:12)
[2020-03-19] MEDS: HumaLOG 300 UNITS/3 ML VIAL SC PRN ×2 (05:27→20:02)
[2020-03-19] MEDS: Mometasone 200 MCG/Formoterol 5 MCG 120 PUFF INHALER INH SCH ×2 (05:48→17:58)
[2020-03-19] MEDS ORDERED: hydrALAZINE 20 MG/ML VIAL SLOW IVP SCH (06:00)
[2020-03-19 06:38] LABS: Hemoglobin 13.3 g/dL (12.0-16.0); Mean Corpuscular HGB CONC 33.2 g/dL (32.0-36.0); Mean Corpuscular Hemoglobin 29.5 pg (27.0-31.0); Mean Corpuscular Volume 88.9 fL (78.0-98.0); Mean Platelet Volume 7.8 fL (7.4-10.4); Platelet Count 166 thou/uL (130-400); RBC Distribution Width 12.1 % (11.5-14.5); Red Blood Cell (RBC) Count 4.51 mill/uL (4.20-5.40); White Blood Cell (WBC) Count 12.8 thou/uL (4.8-10.8)
[2020-03-19 07:01] LABS: ALT (SGPT) 50 U/L (8-55); AST (SGOT) 85 U/L (5-34); Albumin 3.1 g/dL (3.4-4.8); Alkaline Phosphatase 43 U/L (40-110); Bilirubin, Direct 0.4 mg/dL (0.1-0.3); Bilirubin, Total 0.5 mg/dL (0.2-1.2); Protein, Total 6.8 g/dL (6.0-8.3)
[2020-03-19 07:02] LABS: ALT (SGPT) 50 U/L (8-55); AST (SGOT) 83 U/L (5-34); Albumin 3.1 g/dL (3.4-4.8); Alkaline Phosphatase 43 U/L (40-110); Anion Gap 13 mmol/L (10-20); BUN (Urea Nitrogen) 15 mg/dL (9.8-20.1); Bilirubin, Total 0.5 mg/dL (0.2-1.2); Calc. Creatinine Clearance 108 mL/min (70-130); Carbon Dioxide 26 mmol/L (23-31); Chloride 101 mmol/L (98-107); Globulin 3.7 g/dL (2.4-3.5); Glucose 231 mg/dL (83-110); Potassium 3.1 mmol/L (3.5-5.1); Protein, Total 6.8 g/dL (6.0-8.3); Sodium 137 mmol/L (136-145)
[2020-03-19] MEDS ORDERED: Potassium Chloride 20 MEQ TAB PO SCH (07:15)
[2020-03-19] MEDS: Loratadine 10 MG TAB PO SCH (08:14)
[2020-03-19] MEDS: Dexamethasone 4 MG TAB PO SCH (08:14)
[2020-03-19] MEDS: Lisinopril 20 MG TAB PO SCH (08:14)
[2020-03-19] MEDS: Amlodipine 10 MG TAB PO SCH (08:15)
[2020-03-19] MEDS: Oxybutynin 5 MG TAB PO SCH (08:15)
[2020-03-19] MEDS: Cyanocobalamin (Vitamin B-12) 1,000 MCG TAB PO SCH (08:16)
[2020-03-19] MEDS: Gabapentin 100 MG CAP PO SCH (08:16)
[2020-03-19] MEDS: Carvedilol 25 MG TAB PO SCH ×2 (08:16→16:37)
[2020-03-19] MEDS: Chlorthalidone 25 MG TAB PO SCH (08:16)
[2020-03-19] MEDS: Nystatin Powder 15 GM BOT TOP SCH ×2 (08:17→19:46)
[2020-03-19] MEDS: Fluticasone Propionate Nasal Spray 16 gm Bottle NASAL SCH (08:17)
[2020-03-19] MEDS: Enoxaparin Sodium 40 MG/0.4 ML SYRINGE SC SCH (08:17)
[2020-03-19] MEDS ORDERED: Insulin Glargine 7 UNITS in Pre-Filled Syringe 1 EACH SC SCH (09:00)
--- NOTE | 2020-03-19 09:20 | PDOC.FM ---
- Objective Vital Signs & Weight: Vital Signs (12 hours) Temp Pulse Pulse Resp BP BP BP 03/19/20 08:15 82 182/93 H 03/19/20 08:14 182/93 H 03/19/20 08:00 98.4 F 83 24 H 194/71 H 03/19/20 06:03 82 182/93 H 03/19/20 05:30 98.7 F 82 20 182/93 H 03/19/20 03:30 98.9 F 77 20 166/76 H 03/19/20 03:10 98.5 F 75 20 166/77 H 03/19/20 00:00 98.5 F 77 20 157/71 H Pulse Ox 03/19/20 08:15 03/19/20 08:14 03/19/20 08:00 96 03/19/20 06:03 03/19/20 05:30 98 03/19/20 03:30 95 03/19/20 03:10 95 03/19/20 00:00 95 Weight Weight 126.87 kg I&O: 03/18/20 03/19/20 03/20/20 06:59 06:59 06:59 Intake Total 2450 Output Total 500 Balance 1950 Result Diagrams: 03/19/20 06:11 03/19/20 06:11 Dx/Plan - Plan Plan: 84yo female w/ PMH of DM2, asthma, HTN, and COVID+ on 03/12 presents with SOB Sepsis and Acute Hypoxic Respiratory Failure 2/2 COVID PNA - COVID + on 03/12/20, in hospital 03/18/20. Tmax 101.8, RR 26 - mIVF due to dry MM and decreased po intake - continue to monitor resp status; currently on 6L NC - Will start HFNC 2/2 air hunger Asthma - continue home albuterol inhaler, not able to do home alb nebs due to COVID+ - added scheduled dulera DM2 - continue home meds - accuchecks ACHS, mild SSI HTN - BP elevated in ED, pt admits not taking home meds day of admission - continue home meds - switched HCTZ to chlorthalidone HLD - continue home meds Overactive Bladder - continue home meds Code Status: full PCP: LIZETH Chowdhury IVFs: SL DVT PPx: lovenox Dispo: Will admit inpatient medical, continue to monitor resp status, LOS >48hrs Addendum - Attending - Attending Attestation Date/Time: 03/19/20 [id number] I personally evaluated the patient and discussed the management with Dr. Oquendo I agree with the History, Examination, Assessment and Plan documented above with any addition or exceptions noted below. 84 yo female admitted for acute hypoxic respiratory failure due to COVID infection with underlying DM obesity, HTN, asthma, and HLD. Declined this morning. Placed patient on HFNC. Now doing much better. O2 sat goal of 92 to 96. Continue steroids, remedesivir, and plasma. Continue to trend labs q 48 hours. Work on better glucose control today. Follow up closely ABrayMD
[2020-03-19 10:57] LABS: Band 24 % (5-11); Lymphocytes 3 % (21-51); MDiff Complete? YES; Monocytes 4 % (0-10); Neutrophil 69 % (42-75); Polychromasia SLIGHT = 2-3 cells (100X) (0-2/hpf)
[2020-03-19] MEDS: Albuterol 200 PUFF (6.7GM INHALER) INH SCH ×2 (15:02→19:46)
[2020-03-19] MEDS: metFORMIN XR 500 MG TAB PO SCH (16:37)
[2020-03-19] MEDS: REMDESIVIR (EUA) 100 MG in Sodium Chloride 0.9% 250 ML 230 ML IV SCH (17:07)
[2020-03-19] MEDS: Acetaminophen 325 MG TAB PO PRN (19:46)
[2020-03-19] MEDS: Atorvastatin Calcium 20 MG TAB PO SCH (19:46)
[2020-03-20] MEDS: Albuterol 200 PUFF (6.7GM INHALER) INH SCH ×4 (01:02→18:17)
--- NOTE | 2020-03-20 06:17 | PDOC.FM ---
- Subjective Subjective: Patient feeling well this AM on HFNC. Denies CP, N/V. - Objective MAR Reviewed: Yes Vital Signs & Weight: Vital Signs (12 hours) Temp Pulse Resp BP Pulse Ox 03/20/20 04:30 98.5 F 78 22 H 162/72 H 92 L 03/20/20 00:00 98.9 F 72 20 160/76 H 94 L 03/19/20 20:00 95 03/19/20 19:15 98.3 F 73 22 H 159/78 H 95 Weight Weight 126.87 kg I&O: 03/18/20 03/19/20 03/20/20 06:59 06:59 06:59 Intake Total 2450 720 Output Total 500 Balance 1950 720 Result Diagrams: 03/19/20 06:11 03/19/20 06:11 Phys Exam - Physical Examination Constitutional: NAD Respiratory: no wheezing, no rales, no rhonchi, clear to auscultation bilateral poor air movement Cardiovascular: RRR, no significant murmur, no rub Gastrointestinal: soft, non-tender, no distention, positive bowel sounds Dx/Plan - Plan Plan: 84yo female w/ PMH of DM2, asthma, HTN, and COVID+ on 03/12 presents with SOB Sepsis and Acute Hypoxic Respiratory Failure 2/2 COVID PNA - COVID + on 03/12/20, in hospital 03/18/20. Tmax 101.8, RR 26 - continue to monitor resp status; currently on HFNC, 40L, 50% FiO2 Asthma - continue home albuterol inhaler, not able to do home alb nebs due to COVID+ - Scheduled dulera DM2 - continue home meds - accuchecks ACHS, mild SSI - Started 7u Lantus 03/19, increase to 10 u HTN - BP elevated in ED, pt admits not taking home meds day of admission - continue home meds - switched HCTZ to chlorthalidone - Will get manual BP this AM 2/2 widened pulse pressure HLD - continue home meds Overactive Bladder - continue home meds Code Status: full PCP: LIZETH Chowdhury IVFs: SL DVT PPx: lovenox Dispo: Will admit inpatient medical, continue to monitor resp status, LOS >48hrs Patient will likely need SNF placement Addendum - Attending - Attending Attestation Date/Time: 03/20/20 [id number] I personally evaluated the patient and discussed the management with Dr. [] I agree with the History, Examination, Assessment and Plan documented above with any addition or exceptions noted below. 84 yo female admitted for acute hypoxic respiratory failure due to COVID infection with underlying DM obesity, HTN, asthma, and HLD. Declining again this morning. Poor oxygenation this morning while I was in room. Increased FiO2 throughout the day and has improved. s/p plasma. Continue remedesivir and steroids. Continue lovenox. Trend labs in AM. BP remains elevated over that last 3 days. Increase thiazide. Start BM reg. Poor prognosis. Shannon
[2020-03-20] MEDS: Mometasone 200 MCG/Formoterol 5 MCG 120 PUFF INHALER INH SCH ×2 (06:23→17:45)
[2020-03-20] MEDS: Gabapentin 100 MG CAP PO SCH (08:45)
[2020-03-20] MEDS: Dexamethasone 4 MG TAB PO SCH (08:45)
[2020-03-20] MEDS: Chlorthalidone 25 MG TAB PO SCH (08:45)
[2020-03-20] MEDS: Carvedilol 25 MG TAB PO SCH ×2 (08:46→17:18)
[2020-03-20] MEDS: Oxybutynin 5 MG TAB PO SCH (08:46)
[2020-03-20] MEDS: Amlodipine 10 MG TAB PO SCH (08:46)
[2020-03-20] MEDS: Loratadine 10 MG TAB PO SCH (08:46)
[2020-03-20] MEDS: Lisinopril 20 MG TAB PO SCH (08:46)
[2020-03-20] MEDS: Cyanocobalamin (Vitamin B-12) 1,000 MCG TAB PO SCH (08:46)
[2020-03-20] MEDS: Nystatin Powder 15 GM BOT TOP SCH ×2 (08:47→20:09)
[2020-03-20] MEDS: Enoxaparin Sodium 40 MG/0.4 ML SYRINGE SC SCH (08:47)
[2020-03-20] MEDS: Fluticasone Propionate Nasal Spray 16 gm Bottle NASAL SCH (08:47)
[2020-03-20] MEDS: Insulin Glargine 10 UNITS in Pre-Filled Syringe 1 EACH SC SCH (08:49)
[2020-03-20] MEDS ORDERED: Bisacodyl 5 MG TAB PO PRN (09:09)
[2020-03-20] MEDS ORDERED: Milk Of Magnesia 30 ML UDCUP PO PRN (09:09)
[2020-03-20] MEDS: HumaLOG 300 UNITS/3 ML VIAL SC PRN ×3 (12:29→21:36)
[2020-03-20] MEDS: metFORMIN XR 500 MG TAB PO SCH (17:18)
[2020-03-20] MEDS: REMDESIVIR (EUA) 100 MG in Sodium Chloride 0.9% 250 ML 230 ML IV SCH (17:53)
[2020-03-20] MEDS: Atorvastatin Calcium 20 MG TAB PO SCH (20:09)
[2020-03-21] MEDS: Albuterol 200 PUFF (6.7GM INHALER) INH SCH ×4 (01:13→18:24)
--- NOTE | 2020-03-21 06:13 | PDOC.FM ---
- Subjective Subjective: Patient feeling well this AM on HFNC. Denies CP, N/V. HFNC 60L at 60% FiO2, satting 91 - Objective MAR Reviewed: Yes Vital Signs & Weight: Vital Signs (12 hours) Temp Pulse Resp BP Pulse Ox 03/21/20 05:33 98.3 F 67 16 128/77 88 L 03/21/20 00:23 93 L 03/20/20 19:49 98.5 F 69 16 124/71 92 L Weight Weight 126.87 kg I&O: 03/19/20 03/20/20 03/21/20 06:59 06:59 06:59 Intake Total 2450 1770 720 Output Total 500 850 500 Balance 1950 920 220 Result Diagrams: 03/21/20 06:09 03/22/20 06:23 Phys Exam - Physical Examination Constitutional: NAD HEENT: PERRLA, moist MMs Respiratory: no wheezing, no rales poor air movement Cardiovascular: RRR Gastrointestinal: soft, non-tender, positive bowel sounds Dx/Plan - Plan Plan: 84yo female w/ PMH of DM2, asthma, HTN, and COVID+ on 03/12 presents with SOB Sepsis and Acute Hypoxic Respiratory Failure 2/2 COVID PNA - COVID + on 03/12/20, in hospital 03/18/20. Tmax 101.8, RR 26 - continue to monitor resp status; currently on HFNC, 40L, 50% FiO2 Asthma - continue home albuterol inhaler, not able to do home alb nebs due to COVID+ - Scheduled dulera DM2 - continue home meds - accuchecks ACHS, mild SSI - Started 7u Lantus 03/19, increase to 12u HTN - BP elevated in ED, pt admits not taking home meds day of admission - continue home meds - switched HCTZ to chlorthalidone - manual BPs if elevated reads HLD - continue home meds Overactive Bladder - continue home meds Code Status: full PCP: LIZETH Chowdhury IVFs: SL DVT PPx: lovenox Dispo: Admitted inpatient medical, continue to monitor resp status, LOS >48hrs Patient will likely need SNF placement Addendum - Attending - Attending Attestation Date/Time: 03/22/20 [id number] I personally evaluated the patient and discussed the management with Dr. Dixon I agree with the History, Examination, Assessment and Plan documented above with any addition or exceptions noted below. continue to wean off HF as tolerated
[2020-03-21] MEDS: Mometasone 200 MCG/Formoterol 5 MCG 120 PUFF INHALER INH SCH ×2 (06:17→18:23)
[2020-03-21] MEDS: HumaLOG 300 UNITS/3 ML VIAL SC PRN ×4 (06:17→21:30)
[2020-03-21 07:32] LABS: ALT (SGPT) 52 U/L (8-55); AST (SGOT) 52 U/L (5-34); Albumin 2.8 g/dL (3.4-4.8); Alkaline Phosphatase 55 U/L (40-110); Anion Gap 16 mmol/L (10-20); BUN (Urea Nitrogen) 28 mg/dL (9.8-20.1); Bilirubin, Total 0.6 mg/dL (0.2-1.2); Calc. Creatinine Clearance 112 mL/min (70-130); Calcium 7.8 mg/dL (7.8-10.44); Carbon Dioxide 27 mmol/L (23-31); Chloride 100 mmol/L (98-107); Globulin 3.5 g/dL (2.4-3.5); Glucose 211 mg/dL (83-110); Potassium 3.1 mmol/L (3.5-5.1); Protein, Total 6.3 g/dL (6.0-8.3); Sodium 140 mmol/L (136-145)
[2020-03-21 07:38] LABS: Hemoglobin 13.7 g/dL (12.0-16.0); Mean Corpuscular HGB CONC 33.3 g/dL (32.0-36.0); Mean Corpuscular Hemoglobin 29.1 pg (27.0-31.0); Mean Corpuscular Volume 87.4 fL (78.0-98.0); Mean Platelet Volume 7.5 fL (7.4-10.4); Platelet Count 254 thou/uL (130-400); RBC Distribution Width 12.1 % (11.5-14.5); Red Blood Cell (RBC) Count 4.71 mill/uL (4.20-5.40); White Blood Cell (WBC) Count 11.8 thou/uL (4.8-10.8)
[2020-03-21 08:29] LABS: Band 4 % (5-11); Lymphocytes 5 % (21-51); MDiff Complete? YES; Monocytes 8 % (0-10); Neutrophil 83 % (42-75); Platelet Morphology Comment Appears Adequate; RBC Morphology Normal
[2020-03-21] MEDS: Insulin Glargine 10 UNITS in Pre-Filled Syringe 1 EACH SC SCH (08:36)
[2020-03-21] MEDS: Dexamethasone 4 MG TAB PO SCH (08:36)
[2020-03-21] MEDS: Enoxaparin Sodium 40 MG/0.4 ML SYRINGE SC SCH (08:36)
[2020-03-21] MEDS: Loratadine 10 MG TAB PO SCH (08:37)
[2020-03-21] MEDS: Chlorthalidone 25 MG TAB PO SCH (08:37)
[2020-03-21] MEDS: Gabapentin 100 MG CAP PO SCH (08:37)
[2020-03-21] MEDS: Cyanocobalamin (Vitamin B-12) 1,000 MCG TAB PO SCH (08:37)
[2020-03-21] MEDS: Oxybutynin 5 MG TAB PO SCH (08:37)
[2020-03-21] MEDS: Carvedilol 25 MG TAB PO SCH ×2 (08:37→17:31)
[2020-03-21] MEDS: Amlodipine 10 MG TAB PO SCH (08:37)
[2020-03-21] MEDS: Lisinopril 20 MG TAB PO SCH (08:37)
[2020-03-21] MEDS: Nystatin Powder 15 GM BOT TOP SCH ×2 (08:38→20:07)
[2020-03-21] MEDS: Polyethylene Glycol 3350 17 GM Packet PO SCH (08:38)
[2020-03-21] MEDS: Fluticasone Propionate Nasal Spray 16 gm Bottle NASAL SCH (08:38)
[2020-03-21] MEDS ORDERED: Potassium Chloride 20 MEQ TAB PO SCH (13:00)
[2020-03-21] MEDS: metFORMIN XR 500 MG TAB PO SCH (17:31)
[2020-03-21] MEDS: REMDESIVIR (EUA) 100 MG in Sodium Chloride 0.9% 250 ML 230 ML IV SCH (18:08)
[2020-03-21] MEDS: Atorvastatin Calcium 20 MG TAB PO SCH (20:07)
[2020-03-21] MEDS: Acetaminophen 325 MG TAB PO PRN (21:29)
[2020-03-22] MEDS: Albuterol 200 PUFF (6.7GM INHALER) INH SCH ×3 (00:50→14:26)
--- NOTE | 2020-03-22 05:38 | PDOC.FM ---
- Subjective Subjective: Patient is resting comfortably in bed. Reports no concerns. States that she has some mild sacral pain, however she does not want anything for it. Denies chest pain, shortness of breath, n/v, abdominal pain. - Objective MAR Reviewed: Yes Vital Signs & Weight: Vital Signs (12 hours) Temp Pulse Resp BP Pulse Ox 03/21/20 21:02 98.3 F 66 16 138/75 96 Weight Weight 126.87 kg I&O: 03/20/20 03/21/20 03/22/20 06:59 06:59 06:59 Intake Total 1770 720 Output Total 850 500 Balance 920 220 Result Diagrams: 03/21/20 06:09 03/22/20 06:23 Phys Exam - Physical Examination Constitutional: NAD HEENT: PERRLA, moist MMs poor air movement Cardiovascular: RRR, no significant murmur Gastrointestinal: soft, non-tender, positive bowel sounds Neurological: non-focal Psychiatric: A&O x 3 Dx/Plan - Plan Plan: 84yo female w/ PMH of DM2, asthma, HTN, and COVID+ on 03/12 presents with SOB Sepsis and Acute Hypoxic Respiratory Failure 2/2 COVID PNA - COVID + on 03/12/20, in hospital 03/18/20. Tmax 101.8, RR 26 - continue to monitor resp status; currently on HFNC, 60L, 62% FiO2 Hypokalemia 3.2 > 3.3 - KCl given - consider daily potassium supplementation if not improved in am - am BMP Asthma - continue home albuterol inhaler, not able to do home alb nebs due to COVID+ - Scheduled dulera DM2 - continue home meds - accuchecks ACHS, mild SSI - increase to 12u lantus HTN - BP elevated in ED, pt admits not taking home meds day of admission - continue home meds - switched HCTZ to chlorthalidone - manual BPs if elevated reads HLD - continue home meds Overactive Bladder - continue home meds Code Status: full PCP: LIZETH Chowdhury IVFs: SL DVT PPx: lovenox Dispo: Admitted inpatient medical, continue to monitor resp status, LOS >48hrs Patient will likely need SNF placement Addendum - Attending - Attending Attestation Date/Time: 03/22/20 0691 I personally evaluated the patient and discussed the management with Dr. Dixon I agree with the History, Examination, Assessment and Plan documented above with any addition or exceptions noted below. Will check magnesium in light of continued hypokalemia continue trend potassium and supplement/schedule as needed .
[2020-03-22] MEDS: Mometasone 200 MCG/Formoterol 5 MCG 120 PUFF INHALER INH SCH ×2 (05:40→17:43)
[2020-03-22] MEDS: HumaLOG 300 UNITS/3 ML VIAL SC PRN ×3 (05:40→17:09)
[2020-03-22 07:22] LABS: Anion Gap 15 mmol/L (10-20); BUN (Urea Nitrogen) 27 mg/dL (9.8-20.1); Calc. Creatinine Clearance 114 mL/min (70-130); Calcium 7.8 mg/dL (7.8-10.44); Carbon Dioxide 26 mmol/L (23-31); Chloride 101 mmol/L (98-107); Glucose 181 mg/dL (83-110); Potassium 3.3 mmol/L (3.5-5.1); Sodium 139 mmol/L (136-145)
[2020-03-22] MEDS ORDERED: Potassium Chloride 20 MEQ TAB PO SCH (08:15)
[2020-03-22] MEDS: Oxybutynin 5 MG TAB PO SCH (08:44)
[2020-03-22] MEDS: Lisinopril 20 MG TAB PO SCH (08:44)
[2020-03-22] MEDS: Dexamethasone 4 MG TAB PO SCH (08:44)
[2020-03-22] MEDS: Loratadine 10 MG TAB PO SCH (08:45)
[2020-03-22] MEDS: Carvedilol 25 MG TAB PO SCH ×2 (08:45→17:09)
[2020-03-22] MEDS: Fluticasone Propionate Nasal Spray 16 gm Bottle NASAL SCH (08:46)
[2020-03-22] MEDS: Enoxaparin Sodium 40 MG/0.4 ML SYRINGE SC SCH (08:46)
[2020-03-22] MEDS: Chlorthalidone 25 MG TAB PO SCH (08:46)
[2020-03-22] MEDS: Gabapentin 100 MG CAP PO SCH (08:46)
[2020-03-22] MEDS: Amlodipine 10 MG TAB PO SCH (08:46)
[2020-03-22] MEDS: Cyanocobalamin (Vitamin B-12) 1,000 MCG TAB PO SCH (08:46)
[2020-03-22] MEDS: Polyethylene Glycol 3350 17 GM Packet PO SCH (08:47)
[2020-03-22] MEDS: Nystatin Powder 15 GM BOT TOP SCH (08:47)
[2020-03-22] MEDS ORDERED: Insulin Glargine 12 UNITS in Pre-Filled Syringe 1 EACH SC SCH (09:00)
[2020-03-22] MEDS: metFORMIN XR 500 MG TAB PO SCH (17:09)
[2020-03-22] MEDS: REMDESIVIR (EUA) 100 MG in Sodium Chloride 0.9% 250 ML 230 ML IV SCH (17:16)
[2020-03-22 17:36] VITALS: BP 146/72; TEMP 98.2
--- NOTE | 2020-03-22 21:12 | PDOC.BPN ---
<Yvette Simmons - Last Filed: 03/22/20 21:03> - Brief Progress Note Encounter Date: 03/22/20 Encounter Time: 20:30 Residents were alerted to a CODE BLUE on overhead speaker @ ~2023. Upon arrival to the patient's bedside, nursing staff reported that the patient had been acting altered on and off throughout the day. Was last seen normal @ ~1915 just after shift change. At ~1820 patient's nurse went in to perform a routine vital check and noted that the patient's HFNC had been removed. Was unable to detect a pulse or BP and a code blue was called. By the time we arrived the patient had been receiving compressions for ~5 minutes and had received 1 dose of epi. A pulse check was then performed just after our arrival and the patient was noted to be in asystole. Compressions were then resumed and the patient was given another dose of epi & intubated. She was then given bicarb and another epi before another pulse check revealed she was still in asystole. Calcium was given just prior to stopping compressions as we spoke to the family who confirmed via telephone that the patient had expressed in her last will and testament that she did not wish to be resuscitated. TOD 2036. <Alan Oh - Last Filed: 03/22/20 23:17> Addendum - Attending - Attending Attestation Date/Time: 03/22/20 [id number] I personally evaluated the patient and discussed the management with Dr. Simmons. I agree with the above documentation.
--- NOTE | 2020-03-23 07:31 | DIS ---
DATE OF ADMISSION: 03/18/2020 DATE OF DISCHARGE: 03/22/2020 ATTENDING: Dr. Alan Oh. RESIDENT: Dr. Yvette Simmons DATE OF : 03/22/2020. TIME OF : 2036. CAUSE OF : Cardiac arrest and acute hypoxic respiratory failure secondary to COVID-19 pneumonia. SECONDARY DIAGNOSES: 1. Diabetes mellitus type 2. 2. Morbid obesity. 3. Hypertension. 4. Asthma. 5. Hyperlipidemia. HOSPITAL COURSE: The patient was an 84-year-old female with a past medical history notable for type 2 diabetes, asthma, and hypertension, who was admitted on March 18 for acute hypoxic respiratory failure secondary to COVID pneumonia. At the time of admission, the patient was stable on approximately 4 L nasal cannula. Given the fact that she had no oxygen requirements at baseline, she was admitted to the medical floor for continued respiratory supportive care and close monitoring. Over the course of her hospital stay, the patient was escalated to high-flow nasal cannula for respiratory support and remained stable on this for the next several days. However, on the date of her , the patient was noted to be altered all throughout the day and was last seen normal at approximately 1915, the evening of her . At approximately , on the day of , the patient's nurse went into the room to perform a routine vital check and it was noted that the patient's high-flow nasal cannula has been self removed. The patient was unresponsive and the nurse was unable to detect a pulse or obtain any other vitals, and a Code Blue was subsequently called. The Code Blue was initiated at approximately 2023, during which the patient received three doses of epi, IV calcium and bicarb. While the patient was being coded, family was contacted who confirmed via telephone that the patient had expressed in her last will and testament that she did not wish to be resuscitated. Resuscitative efforts were therefore discontinued and the patient was declared at approximately 2036. Job ID: [id number]
== END 2020-03-22 20:37 | disposition expired | DRG 871 ==
LOC: ERS 01:32 → T4-A 03:23
PROVIDERS: ADMIT Family Medicine; ATTEND Family Medicine
PROC: XW033E5 Introduction of Remdesivir Anti-infective into Peripheral Vein, Percutaneous Approach, New Technology Group 5 (ICD-10-PCS; principal; 2020-03-18)
PROC: 8E0ZXY6 Isolation (ICD-10-PCS; 2020-03-18)
PROC: XW13325 Transfusion of Convalescent Plasma (Nonautologous) into Peripheral Vein, Percutaneous Approach, New Technology Group 5 (ICD-10-PCS; 2020-03-19)
PROC: 5A12012 Performance of Cardiac Output, Single, Manual (ICD-10-PCS; 2020-03-22)
PROC: 3E033XZ Introduction of Vasopressor into Peripheral Vein, Percutaneous Approach (ICD-10-PCS; 2020-03-22)
DX: A41.89 Other specified sepsis (principal); U07.1 COVID-19; J12.82 Pneumonia due to coronavirus disease 2019; J96.01 Acute respiratory failure with hypoxia; Z68.41 Body mass index [BMI] 40.0-44.9, adult; N17.9 Acute kidney failure, unspecified; J45.901 Unspecified asthma with (acute) exacerbation; Z66 Do not resuscitate; I46.8 Cardiac arrest due to other underlying condition; E11.9 Type 2 diabetes mellitus without complications; E66.01 Morbid (severe) obesity due to excess calories; I10 Essential (primary) hypertension; E78.5 Hyperlipidemia, unspecified; N32.81 Overactive bladder; M54.9 Dorsalgia, unspecified; E87.6 Hypokalemia; Z79.899 Other long term (current) drug therapy; Z79.84 Long term (current) use of oral hypoglycemic drugs; Z90.710 Acquired absence of both cervix and uterus
CPT/HCPCS: 36415; 36416; 36430; 71045; 71275; 80048; 80053; 80061; 81003; 81015; 82553; 82728; 83036; 83605; 83615; 83735; 83880; 84100; 84145; 84443; 84484; 85025; 85379; 85610; 85652; 85730; 86140; 86850; 86900; 86901; 87040; 87086; 87635; 93005; 94760; 96365; 96367; 96372; 96375; J0171; J0360; J0692; J1100; J1650; J1815; J1956; J3370; J7050; J8540; P9017; Q9967; U0003